=== PATIENT | female | born 1950 | race Two or more races ===

== ENCOUNTER 2022-08-26 20:09 | Emergency (ER) | payer OTHER ==
[~2022-08-26] VITALS: Ht 157.5 cm; Wt 76.2 kg
[2022-08-26] MEDS ORDERED: NORVASC2.5 MG PO (20:48)
[2022-08-26] MEDS ORDERED: SYNTHROID88 MCG PO (20:48)
[2022-08-26] MEDS ORDERED: BENICAR HCT 401 EACH PO (20:48)
[2022-08-26] MEDS ORDERED: PROVENTIL S2 MG/5 ML PO (20:48)
== END 2022-08-27 00:17 | disposition home or self-care (01) ==
LOC: ER 20:09
DX: J45.901 Unspecified asthma with (acute) exacerbation (principal); I10 Essential (primary) hypertension; Z88.1 Allergy status to other antibiotic agents; Z20.822 Contact with and (suspected) exposure to COVID-19